=== PATIENT | male | born 1965 | race American Indian/Alaskan Native ===

== ENCOUNTER 2018-11-24 18:57 | Emergency (ER) | payer SELFPAY ==
[2018-11-24] MEDS ORDERED: BOOSTRIX IM ONE (19:06)
--- NOTE | 2018-11-24 19:06 | Emergency Department Report ---
Blank Doc - Documentation Documentation: This is a 53-year-old male that presents with right index finger laceration that happened last night 830 PM. Stated cut himself with glass. Denies any other complaints or injuries. Last tetanus was 2010. This initial assessment diagnostic orders/clinical plan/treatment(s) is/are subject to change based on patient's health status, clinical progression and re- assessment by fellow clinical providers in the ED. Further treatment and workup at subsequent clinical providers discretion. Patient/guardians urged not to elope from ED s their condition may be serious if not clinically assessed and managed. Initial orders include: 1-Patient sent to [facility] for further evaluation and treatment. 2- xray to r/o foreign body 3- tetanus ordered
[2018-11-24 19:09] VITALS: BP 155/98
--- NOTE | 2018-11-24 20:23 | XRay Report ---
FINAL REPORT PROCEDURE: XR FINGER(S) 2+V RT TECHNIQUE: RIGHT 2nd finger radiographs, including AP, lateral, and oblique views. HISTORY: right index lac r/o foreign body COMPARISON: No prior studies are available for comparison. FINDINGS: Limited study due to suboptimal positioning Fracture (s) and/or Dislocation(s): None . Alignment: Normal. Joint space(s): Normal . Bone mineralization: Normal . Foreign bodies: An irregular radiopaque density measuring 1.9 millimeters is noted anterior to the 2n d proximal phalanx better visualized on the lateral view and is suspicious for a foreign body.. IMPRESSION: Possible foreign body measuring 1.9 millimeters anterior to the 2nd proximal phalanx. Clinical correl ation is recommended.
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
[2018-11-24] MEDS ORDERED: IBUPROFEN PO ONE (21:12)
[2018-11-24] MEDS ORDERED: KEFLEX PO ONE (21:12)
[2018-11-24] MEDS ORDERED: TRIPLE ANTIBIOTIC TP ONE ×2 (21:20)
== END 2018-11-24 21:25 | disposition home or self-care (01) ==
LOC: ED 18:57
DX: S61.210A Laceration without foreign body of right index finger without damage to nail, initial encounter (principal); W45.8XXA Other foreign body or object entering through skin, initial encounter; Y93.89 Activity, other specified; Y92.89 Other specified places as the place of occurrence of the external cause; Y99.8 Other external cause status
CPT/HCPCS: 90471; 90715; A6250